=== PATIENT | female | born 1935 | race Caucasian/White ===

== ENCOUNTER 2017-12-18 13:25 | Inpatient (IN) | payer MEDICARE ==
[~2017-12-18] VITALS: Ht 167.6 cm; Wt 104.0 kg
[2017-12-18] MEDS ORDERED: SODIUM CHLORIDE FLUSH 10ML SYR IVF ONE (14:00)
[2017-12-18 14:24] LABS: BASOPHILS # (AUTO) 0.02 x10^3/uL (0-0.1); BASOPHILS % (AUTO) 0 % (0-1); EOSINOPHILS # (AUTO) 0.09 x10^3/uL (0-0.4); EOSINOPHILS % (AUTO) 1 % (1-7); LYMPHOCYTES # (AUTO) 0.92 x10^3/uL (1-3.4); LYMPHOCYTES % (AUTO) 14 % (22-44); MD NO; MEAN CORPUSCULAR HEMOGLOBIN 28.7 pg (27.0-34.8); MEAN CORPUSCULAR HGB CONC 32.5 g/dL (32.4-35.8); MEAN CORPUSCULAR VOLUME 88.2 fL (80-100); MEAN PLATELET VOLUME 8.4 fL (7.4-10.4); MONOCYTES # (AUTO) 0.54 x10^3/uL (0.2-0.8); MONOCYTES % (AUTO) 8 % (2-9); NEUTROPHILS # (AUTO) 5.27 x10^3/uL (1.8-6.8); NEUTROPHILS % (AUTO) 77 % (42-75); PLATELET COUNT 248 x10^3/uL (130-400); RED BLOOD COUNT 3.91 x10^6/uL (3.82-5.3); RED CELL DISTRIBUTION WIDTH 20.3 % (9.6-15.2)
[2017-12-18] MEDS ORDERED: CARV6.252 PO (14:25)
[2017-12-18] MEDS ORDERED: FURO20TA3 PO (14:25)
[2017-12-18] MEDS ORDERED: FLUV20CA3 PO (14:25)
[2017-12-18] MEDS ORDERED: BECL8.7A7 INH (14:25)
[2017-12-18] MEDS ORDERED: TIOT18CA INH (14:25)
[2017-12-18] MEDS ORDERED: FAMO20TA7 PO (14:25)
[2017-12-18] MEDS ORDERED: CALC500T PO (14:25)
[2017-12-18] MEDS ORDERED: FERR325T5 PO (14:25)
[2017-12-18] MEDS ORDERED: ALBU0.63 NEB (14:25)
[2017-12-18] MEDS ORDERED: CALC667T PO (14:25)
[2017-12-18] MEDS ORDERED: DOCU100C33 PO (14:25)
[2017-12-18] MEDS ORDERED: BENA40TA2 PO (14:25)
[2017-12-18] MEDS ORDERED: ISOS20TA58 PO (14:25)
[2017-12-18 14:37] LABS: ALBUMIN 3.6 g/dL (3.4-5.0); ANION GAP 7 mmol/L (5-15); CALCIUM 7.8 mg/dL (8.5-10.1); CHLORIDE 91 mmol/L (98-107)
[2017-12-18 14:47] LABS: ALANINE AMINOTRANSFERASE 15 U/L (12-78); ALKALINE PHOSPHATASE 68 U/L (45-117); BILIRUBIN,TOTAL 0.4 mg/dL (0.2-1.0); CREATININE 1.17 mg/dL (0.55-1.02); TOTAL PROTEIN 7.8 g/dL (6.4-8.2); TROPONIN I < 0.015 ng/mL (0.000-0.045)
[2017-12-18 15:06] LABS: INTERNATIONAL NORMALIZED RATIO 0.96 (0.93-1.1)
[2017-12-18] MEDS ORDERED: OMNIPAQUE 350 MG/ML, 100ML BOTTLE ONE (15:38)
[2017-12-18 16:18] LABS: MICROSCOPIC NOT IND
[2017-12-18 16:29] LABS: CULTURE INDICATED? NO
[2017-12-18] MEDS ORDERED: SODIUM CHLORIDE 0.9% 1,000 ML IV SCH (17:47)
[2017-12-18] MEDS ORDERED: ACETAMINOPHEN 325 MG TABLET PO PRN (18:00)
[2017-12-18] MEDS ORDERED: CALCIUM ACETATE 667 MG PO SCH (18:00)
[2017-12-18 18:19] VITALS: BP 217/95
[2017-12-18] MEDS ORDERED: ALBUTEROL SULFATE 2.5 MG/3 ML NPPB PRN (18:30)
[2017-12-18 19:36] VITALS: BP_SYST 158; BP_SYST 160; BP_SYST 173; BP_DIAS 87; BP_DIAS 88
[2017-12-18] MEDS ORDERED: ISOSORBIDE DINITRATE 10 MG TABLET ONE (20:01)
[2017-12-18] MEDS: ISOSORBIDE DINITRATE 20 MG TABLET PO SCH ×2 (20:04→21:20)
[2017-12-18] MEDS ORDERED: CYAN50002 PO (20:32)
[2017-12-18] MEDS ORDERED: ACET-1600 PO (20:32)
[2017-12-18] MEDS ORDERED: LORA10TA3 PO (20:32)
[2017-12-18] MEDS ORDERED: DIPH25CA61 PO (20:32)
[2017-12-18] MEDS ORDERED: ASCO500T12 PO (20:34)
[2017-12-18] MEDS ORDERED: JOINT SUPPORT PO (20:34)
[2017-12-18] MEDS ORDERED: MAGN400T36 PO (20:34)
[2017-12-18] MEDS ORDERED: OMEG10003 PO (20:34)
[2017-12-18 20:36] LABS: TROPONIN I < 0.015 ng/mL (0.000-0.045)
[2017-12-18] MEDS: IPRATROPIUM 0.5 MG/2.5 ML INHA NPPB SCH (20:38)
[2017-12-18] MEDS ORDERED: CHOL400C11 PO (20:42)
[2017-12-18] MEDS ORDERED: [UNRECOGNIZED DRUG - OTHER] PO (20:42)
[2017-12-18] MEDS ORDERED: EVEN500C4 PO (20:42)
[2017-12-18] MEDS ORDERED: POTA99TA24 PO (20:42)
[2017-12-18] MEDS ORDERED: [UNRECOGNIZED DRUG - OTHER] PO (20:42)
[2017-12-18] MEDS ORDERED: LBS II PO (20:42)
[2017-12-18] MEDS ORDERED: BILB80CA PO (20:42)
[2017-12-18] MEDS ORDERED: [UNRECOGNIZED DRUG - OTHER] PO (20:42)
[2017-12-18] MEDS ORDERED: AROM1FL. PO (20:42)
[2017-12-18] MEDS: FAMOTIDINE 20 MG TABLET PO SCH (21:31)
[2017-12-18] MEDS: SIMVASTATIN 5 MG TABLET PO SCH (21:31)
[2017-12-18] MEDS: DOCUSATE 100 MG CAPSULE PO SCH (21:32)
[2017-12-18] MEDS: CALCIUM ACETATE 667 MG CAPSULE PO SCH (21:32)
[2017-12-18] MEDS: FERROUS SULFATE 325 MG TABLET PO SCH (21:32)
[2017-12-18] MEDS: CALCIUM CARBONATE 500 MG TABLET PO SCH (21:32)
[2017-12-19 01:30] VITALS: BP 157/82
[2017-12-19] MEDS ORDERED: ALBUTEROL SULFATE 2.5 MG/3 ML NPPB PRN (01:30)
[2017-12-19 02:25] LABS: BASOPHILS # (AUTO) 0.03 x10^3/uL (0-0.1); BASOPHILS % (AUTO) 1 % (0-1); EOSINOPHILS # (AUTO) 0.09 x10^3/uL (0-0.4); EOSINOPHILS % (AUTO) 2 % (1-7); LYMPHOCYTES # (AUTO) 1.17 x10^3/uL (1-3.4); LYMPHOCYTES % (AUTO) 21 % (22-44); MD NO; MEAN CORPUSCULAR HEMOGLOBIN 29.1 pg (27.0-34.8); MEAN CORPUSCULAR VOLUME 88.1 fL (80-100); MEAN PLATELET VOLUME 8.2 fL (7.4-10.4); MONOCYTES % (AUTO) 11 % (2-9); NEUTROPHILS % (AUTO) 67 % (42-75); PLATELET COUNT 224 x10^3/uL (130-400); RED BLOOD COUNT 3.57 x10^6/uL (3.82-5.3); RED CELL DISTRIBUTION WIDTH 20.5 % (9.6-15.2)
[2017-12-19 02:34] LABS: ALANINE AMINOTRANSFERASE 13 U/L (12-78); ALBUMIN 3.1 g/dL (3.4-5.0); ANION GAP 9 mmol/L (5-15); CHLORIDE 95 mmol/L (98-107); CREATININE 0.93 mg/dL (0.55-1.02)
[2017-12-19 02:40] LABS: ALKALINE PHOSPHATASE 59 U/L (45-117); BILIRUBIN,TOTAL 0.3 mg/dL (0.2-1.0); CHOL/HDL RATIO 2.5; CHOLESTEROL, TOTAL 167 mg/dL (140-239); HDL CHOL % 40 % (28-40); HDL CHOLESTEROL (DIRECT) 67 mg/dL (40-60); LDL CHOLESTEROL,CALCULATED 89 mg/dL (54-169); LDL/HDL RATIO 1.3 (0.5-3.0); TOTAL PROTEIN 6.6 g/dL (6.4-8.2); TRIGLYCERIDES 57 mg/dL (50-200); VLDL CHOLESTEROL 11 mg/dL (0-25)
[2017-12-19 02:41] LABS: TROPONIN I < 0.015 ng/mL (0.000-0.045)
[2017-12-19 08:10] VITALS: BP 180/80
[2017-12-19 08:11] VITALS: BP 184/93
[2017-12-19 08:13] VITALS: BP 182/101
[2017-12-19] MEDS: IPRATROPIUM 0.5 MG/2.5 ML INHA NPPB SCH ×4 (08:30→20:00)
[2017-12-19] MEDS: BENAZEPRIL 20 MG TABLET PO SCH (08:45)
[2017-12-19] MEDS: FERROUS SULFATE 325 MG TABLET PO SCH ×2 (08:45→22:03)
[2017-12-19] MEDS: DOCUSATE 100 MG CAPSULE PO SCH ×2 (08:45→22:02)
[2017-12-19] MEDS: CALCIUM ACETATE 667 MG CAPSULE PO SCH ×3 (08:45→22:03)
[2017-12-19] MEDS: ISOSORBIDE DINITRATE 20 MG TABLET PO SCH ×3 (08:45→23:44)
[2017-12-19] MEDS: FAMOTIDINE 20 MG TABLET PO SCH ×2 (08:46→22:02)
[2017-12-19] MEDS: CARVEDILOL 3.125 MG TABLET PO SCH ×2 (08:46→22:03)
[2017-12-19] MEDS: CALCIUM CARBONATE 500 MG TABLET PO SCH ×2 (08:46→22:03)
[2017-12-19] MEDS: FLUTICASONE FUROATE 200MCG/INH INH SCH (08:57)
[2017-12-19] MEDS ORDERED: CARVEDILOL 6.25 MG TABLET PO SCH (09:00)
[2017-12-19 13:17] VITALS: BP 155/105
[2017-12-19 20:30] VITALS: BP_SYST 149; BP_SYST 180; BP_SYST 185; BP_DIAS 101; BP_DIAS 105; BP_DIAS 99
[2017-12-19] MEDS: SIMVASTATIN 5 MG TABLET PO SCH (22:02)
[2017-12-20 02:00] VITALS: BP 146/72
[2017-12-20] MEDS: IPRATROPIUM 0.5 MG/2.5 ML INHA NPPB SCH ×3 (06:36→14:28)
[2017-12-20] MEDS ORDERED: FUROSEMIDE 20 MG/2 ML IV SCH (07:30)
[2017-12-20 07:35] LABS: MD YES; MEAN CORPUSCULAR HGB CONC 32.8 g/dL (32.4-35.8); MEAN CORPUSCULAR VOLUME 88.6 fL (80-100); MEAN PLATELET VOLUME 7.8 fL (7.4-10.4); PLATELET COUNT 217 x10^3/uL (130-400); RED BLOOD COUNT 3.74 x10^6/uL (3.82-5.3); RED CELL DISTRIBUTION WIDTH 20.3 % (9.6-15.2)
[2017-12-20 07:38] LABS: ALBUMIN 3.1 g/dL (3.4-5.0); ANION GAP 7 mmol/L (5-15); CALCIUM 7.6 mg/dL (8.5-10.1); CHLORIDE 95 mmol/L (98-107); CHOLESTEROL, TOTAL 165 mg/dL (140-239); CREATININE 0.98 mg/dL (0.55-1.02); TRIGLYCERIDES 55 mg/dL (50-200); VLDL CHOLESTEROL 11 mg/dL (0-25)
[2017-12-20 07:40] LABS: CHOL/HDL RATIO 2.4; HDL CHOL % 41 % (28-40); HDL CHOLESTEROL (DIRECT) 68 mg/dL (40-60); LDL CHOLESTEROL,CALCULATED 86 mg/dL (54-169); LDL/HDL RATIO 1.3 (0.5-3.0)
[2017-12-20 08:05] LABS: % IRON SATURATION 10 % (20-55); IRON LEVEL 31 mcg/dL (50-170); TOTAL IRON BINDING CAPACITY 312 mcg/dL (250-450)
[2017-12-20 08:08] LABS: BAND#(MANUAL) 0.97 x10^3/uL; BANDS%(MANUAL) 8 % (0-7); EOS#(MANUAL) 0.36 x10^3/uL (0.0-0.4); EOS% (MANUAL) 3 % (1-7); LYMPH#(MANUAL) 0.73 x10^3/uL (1-3.4); LYMPHS% (MANUAL) 6 % (22-44); MONOS#(MANUAL) 0.36 x10^3/uL (0.3-2.7); MONOS% (MANUAL) 3 % (2-9); SEG#(MANUAL) 9.68 x10^3/uL (1.8-6.8); SEGS% (MANUAL) 80 % (42-75)
[2017-12-20 08:09] LABS: <PLATELET ESTIMATE> ADEQUATE; <PLT MORPHOLOGY> NORMAL PLT MORPH; ANISOCYTOSIS 1+
[2017-12-20 08:15] VITALS: BP 147/72
[2017-12-20 08:18] VITALS: BP 173/88
[2017-12-20 08:22] VITALS: BP 185/78
[2017-12-20] MEDS: FERROUS SULFATE 325 MG TABLET PO SCH (08:30)
[2017-12-20] MEDS: CARVEDILOL 3.125 MG TABLET PO SCH (08:31)
[2017-12-20] MEDS: ISOSORBIDE DINITRATE 20 MG TABLET PO SCH ×2 (08:31→14:46)
[2017-12-20] MEDS: BENAZEPRIL 20 MG TABLET PO SCH (08:31)
[2017-12-20] MEDS: FLUTICASONE FUROATE 200MCG/INH INH SCH (08:32)
[2017-12-20 08:38] LABS: FOLATE LEVEL > 20.0 ng/mL (3.1-17.5)
[2017-12-20] MEDS ORDERED: OMEPRAZOLE 20 MG CAPSULE.DR PO SCH (09:00)
[2017-12-20] MEDS ORDERED: AMLODIPINE 2.5 MG TABLET PO SCH (09:00)
[2017-12-20 11:38] VITALS: BP 153/80
[2017-12-20] MEDS ORDERED: OMNIPAQUE 350 MG/ML, 100ML BOTTLE ONE (12:51)
[2017-12-20] MEDS ORDERED: OMEP-110 PO (13:36)
[2017-12-20] MEDS ORDERED: AMLO2.5T PO (13:38)
[2017-12-20 14:06] VITALS: BP 150/82
== END 2017-12-20 16:30 | disposition home health service (06) | DRG 73 ==
LOC: ED 16:35 → EDIP 16:36 → ED 16:45 → 4EST 18:04 → DCLOUNGE 12-20 16:00
PROVIDERS: ADMIT Hospitalist; ATTEND Hospitalist
DX: G90.8 Other disorders of autonomic nervous system (principal); I50.31 Acute diastolic (congestive) heart failure; J96.10 Chronic respiratory failure, unspecified whether with hypoxia or hypercapnia; I27.20 Pulmonary hypertension, unspecified; I13.0 Hypertensive heart and chronic kidney disease with heart failure and stage 1 through stage 4 chronic kidney disease, or unspecified chronic kidney disease; E87.1 Hypo-osmolality and hyponatremia; E78.5 Hyperlipidemia, unspecified; D64.9 Anemia, unspecified; N18.3 Chronic kidney disease, stage 3 (moderate); K44.9 Diaphragmatic hernia without obstruction or gangrene; K21.9 Gastro-esophageal reflux disease without esophagitis; I45.10 Unspecified right bundle-branch block; Z80.3 Family history of malignant neoplasm of breast; Z82.49 Family history of ischemic heart disease and other diseases of the circulatory system; Z88.8 Allergy status to other drugs, medicaments and biological substances; Z99.81 Dependence on supplemental oxygen
CPT/HCPCS: 36415; 70450; 71275; 74177; 80048; 80053; 80061; 81003; 82040; 82607; 82728; 82746; 83540; 83550; 83605; 83735; 84100; 84439; 84443; 84484; 85025; 85379; 85610; 87040; 93005; 93306; 94640; 99285; J7644; Q9967; J1940; J7030